=== PATIENT | female | born 1955 | race Caucasian/White ===

== ENCOUNTER → 2021-01-26 15:00 | Outpatient (CLI) | payer OTHER ==
[~2021-01-26 15:00] MED LIST: ACETAMINOOPHEN-1 TAB PO; CARAFATE1 G PO; CHOLESTYRAMINE P4 GM PO; COZAAR50 MG PO; FLAGYL500MG PO; INTESTINEX1 CA1 PO; NEXIUM10 MG PO; POLY119PG PO; SURFAK240 M1 PO
== END | disposition home or self-care (01) ==
LOC: PPH VACUNA 15:00
PROVIDERS: ATTEND Emergency Medicine Pediatric Emergency Medicine
DX: Z23 Encounter for immunization (principal)

== ENCOUNTER → 2021-02-16 08:00 | Outpatient (CLI) | payer OTHER | END | disposition home or self-care (01) | LOC: PPH VACUNA 08:00 | PROVIDERS: ATTEND Emergency Medicine Pediatric Emergency Medicine | DX: Z23 Encounter for immunization (principal) ==